=== PATIENT | female | born 1985 | race Caucasian/White ===

== ENCOUNTER 2019-01-13 21:22 | Emergency (ER) | payer OTHER ==
[~2019-01-13] VITALS: Ht 165.1 cm; Wt 77.6 kg
[2019-01-13 21:41] VITALS: Ht 165.1 cm; Wt 77.6 kg
[2019-01-14 01:03] VITALS: BP 139/93
[2019-01-14 01:40] LABS: UA SPECIFIC GRAVITY 1.015 (1.005-1.035); microscopic required? YES; urine erythrocyte NEGATIVE (NEGATIVE)
== END 2019-01-14 01:03 | disposition home or self-care (01) ==
LOC: ED 21:22
PROVIDERS: Specialist
DX: N39.0 Urinary tract infection, site not specified (principal)
CPT/HCPCS: 87804; J1885; Q0162